=== PATIENT | male | born 1980 | race Caucasian/White ===

== ENCOUNTER 2018-05-21 01:20 | Emergency (ER) | payer OTHER ==
[~2018-05-21 01:20] MED LIST: HYDACE5 PO; IBUP600; IBUP800 PO; LAMO100 PO; OXYACE5T PO; PENVK500 PO; RXPENVK250 PO; TRIA80TC TOP
== END 2018-05-21 02:29 | disposition left against medical advice (07) ==
LOC: ER 01:20
DX: Z53.21 Procedure and treatment not carried out due to patient leaving prior to being seen by health care provider (principal)

== ENCOUNTER 2018-05-24 18:02 | Emergency (ER) | payer OTHER ==
[~2018-05-24] VITALS: Ht 172.7 cm; Wt 78.0 kg
[2018-05-24] MEDS ORDERED: Monodox100 MG PO (18:22)
== END 2018-05-24 19:13 | disposition home or self-care (01) ==
LOC: ER 18:02
DX: L02.413 Cutaneous abscess of right upper limb (principal); F17.200 Nicotine dependence, unspecified, uncomplicated; Z88.8 Allergy status to other drugs, medicaments and biological substances; Z79.899 Other long term (current) drug therapy
CPT/HCPCS: 10060; 99282-25